=== PATIENT | male | born 1970 ===

== ENCOUNTER 2017-08-19 09:34 | Day surgery (SDC) | payer BC ==
[~2017-08-19] VITALS: Ht 185.4 cm; Wt 87.1 kg
== END 2017-08-19 11:59 | disposition home or self-care (01) ==
LOC: ORSCSDS 09:34
PROVIDERS: Internal Medicine Gastroenterology
PROC: 0DJD8ZZ Inspection of Lower Intestinal Tract, Via Natural or Artificial Opening Endoscopic (ICD-10-PCS; principal; 2017-08-19 10:45)
DX: Z12.11 Encounter for screening for malignant neoplasm of colon (principal); K64.8 Other hemorrhoids; Z86.010 Personal history of colon polyps
CPT/HCPCS: J2250; J7120